=== PATIENT | male | born 1985 | race Caucasian/White ===

== ENCOUNTER 2021-06-28 16:54 | Emergency (ER) | payer OTHER ==
[2021-06-28] MEDS ORDERED: AUGMENTIN 875-1 EACH PO (19:42)
== END 2021-06-28 19:53 | disposition home or self-care (01) ==
LOC: FER 16:54
DX: S61.451A Open bite of right hand, initial encounter (principal); F17.290 Nicotine dependence, other tobacco product, uncomplicated; Z23 Encounter for immunization; W54.0XXA Bitten by dog, initial encounter; Y92.009 Unspecified place in unspecified non-institutional (private) residence as the place of occurrence of the external cause
CPT/HCPCS: 73130; 90471; 90715